=== PATIENT | female | born 1995 | race Two or more races ===

== ENCOUNTER 2025-01-15 19:29 | Emergency (ER) | payer OTHER, MEDICAID ==
[2025-01-16] MEDS ORDERED: GABA300T4 PO (00:12)
== END 2025-01-15 21:37 | disposition left against medical advice (07) ==
LOC: ER 19:29
DX: Z04.1 Encounter for examination and observation following transport accident (principal); Z53.21 Procedure and treatment not carried out due to patient leaving prior to being seen by health care provider

== ENCOUNTER 2025-01-15 21:07 | Emergency (ER) | payer MEDICAID, OTHER ==
[~2025-01-15] VITALS: Ht 172.7 cm; Wt 91.0 kg
[2025-01-15] MEDS: MORPHINE SULFATE 4 MG/ML SYR/VIAL IV ONE (21:30)
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
[2025-01-15 21:55] LABS: Basophils # (auto) 0 10 ^3/uL (0-0.2); Basophils % (auto) 0.3 % (0.0-2.0); Eosinophils # (auto) 0 10 ^3/uL (0-0.8); Eosinophils % (auto) 0.2 % (0.0-7.0); Hematocrit 35.8 % (36.0-46.0); Lymphocytes # (auto) 1.5 10 ^3/uL (0.4-5.4); Lymphocytes % (auto) 13.8 % (10.0-50.0); Mean Corpuscular Hgb Conc. 33.5 g/dL (32.0-36.0); Mean Corpuscular Volume 80.6 fL (80.0-100.0); Monocytes # (auto) 0.6 10 ^3/uL (0-1.3); Monocytes % (auto) 5.1 % (0.0-12.0); Neutrophils # (auto) 8.7 10 ^3/uL (1.6-8.6); Neutrophils % (auto) 80.6 % (37.0-80.0); Platelet Count (auto) 270 10^3/uL (140-450); Red Blood Cells 4.44 10^6/uL (4.0-5.20); Red Cell Distribution Width 14.9 % (11.8-14.3); White Blood Cell 10.8 10^3/uL (4.4-10.8)
[2025-01-15 22:14] LABS: Alanine Aminotransferase 16 U/L (7-40); Albumin 4.8 g/dL (3.2-4.8); Alkaline Phosphatase 66 U/L (46-116); Anion Gap 11 (5-15); Aspartate Aminotransferase 27 U/L (13-40); BUN/Creatinine Ratio 10.2 (10.0-20.0); Bilirubin, Total 0.4 mg/dL (0.2-1.0); Blood Urea Nitrogen 10 mg/dL (9-23); Calcium 9.1 mg/dL (8.7-10.4); Carbon Dioxide 23 mmol/L (20-31); Chloride 104 mmol/L (98-107); Glucose 115 mg/dL (74-106); Lipase 26 U/L (12-53); Potassium 3.6 mmol/L (3.5-5.1); Sodium 138 mmol/L (136-145); Total Protein 7.5 g/dL (5.7-8.2)
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
[2025-01-16] MEDS ORDERED: GABA300T4 PO (00:12)
[2025-01-16] MEDS: ONDANSETRON HCL 4 MG/2 ML VIAL IV ONE (01:47)
[2025-01-16] MEDS: SODIUM CHLORIDE 0.9% 1,000 ML IVB ONE (01:47)
[2025-01-16] MEDS: IOHEXOL 300 MG/ML 100ML BOTTLE IJ ONE (01:47)
[2025-01-16 01:48] VITALS: BP 118/78; PULSE 80; RESP 14; TEMP 98.2; O2SAT 99
== END 2025-01-16 01:54 | disposition home or self-care (01) ==
LOC: EDBD 21:07 → ER 21:07
DX: S20.219A Contusion of unspecified front wall of thorax, initial encounter (principal); R10.2 Pelvic and perineal pain; S30.1XXA Contusion of abdominal wall, initial encounter; R51.9 Headache, unspecified; N83.202 Unspecified ovarian cyst, left side; K76.0 Fatty (change of) liver, not elsewhere classified; Z79.899 Other long term (current) drug therapy; V89.2XXA Person injured in unspecified motor-vehicle accident, traffic, initial encounter; Y93.I9 Activity, other involving external motion; Y92.89 Other specified places as the place of occurrence of the external cause; Y99.8 Other external cause status
CPT/HCPCS: 36415; 71260; 74177; 80053; 83690; 84702; 85025; 99285; Q9967